=== PATIENT | male | born 1945 | race Caucasian/White ===

== ENCOUNTER 2018-10-02 15:42 | Emergency (ER) | payer MEDICARE, BC ==
[~2018-10-02] VITALS: Ht 170.2 cm; Wt 84.9 kg
[~2018-10-02 15:42] MED LIST: ALLO300T PO; CALC0.25 PO; CALC667C PO; DILT90CA PO; EZET10TA18 PO; FINA5TAB4 PO; FURO-92 PO; GLIP5TAB10 PO; HYDR-3237 PO; LINA5TAB PO; POLY17PO29 PO; ROSU10TA PO; TAMS0.4C2 PO; VIT1CAPS21 PO; WARF4TAB PO
--- NOTE | 2018-10-02 16:40 | NUR ---
TO ROOM FROM LOBBY. NAD.
--- NOTE | 2018-10-02 18:26 | NUR ---
PT UP FOR RECHECK
[2018-10-02 18:47] VITALS: BP 128/65
== END 2018-10-02 19:37 | disposition home or self-care (01) ==
LOC: ED 17:39
DX: S20.20XA Contusion of thorax, unspecified, initial encounter (principal); W01.0XXA Fall on same level from slipping, tripping and stumbling without subsequent striking against object, initial encounter; Y93.89 Activity, other specified; Y92.009 Unspecified place in unspecified non-institutional (private) residence as the place of occurrence of the external cause; Y99.8 Other external cause status
CPT/HCPCS: 71046; 99284

== ENCOUNTER 2018-10-07 10:55 | Inpatient (IN) | payer MEDICARE, BC ==
[~2018-10-07] VITALS: Ht 177.8 cm; Wt 78.2 kg
[~2018-10-07 10:55] MED LIST changes: +PROPOFOL 10 MG/ML, 100ML IV ONE; +SUCCINYLCHOLINE 20 MG/ML, 10ML ONE
--- NOTE | 2018-10-07 11:08 | NUR ---
PALEOLOGY TEACHER: PT INTUBATED UPON ARRIVAL 8.0 23 @ TEETH, PT TO CT VIA STRETCHER BY RN ON MONITOR W/ RT AT THIS TIME.
[2018-10-07 11:15] LABS: BASOPHILS # (AUTO) 0.02 x10^3/uL (0-0.1); BASOPHILS % (AUTO) 0 % (0-1); EOSINOPHILS # (AUTO) 0.23 x10^3/uL (0-0.4); EOSINOPHILS % (AUTO) 3 % (1-7); LYMPHOCYTES # (AUTO) 2.18 x10^3/uL (1-3.4); LYMPHOCYTES % (AUTO) 29 % (22-44); MD NO; MEAN CORPUSCULAR HEMOGLOBIN 30.5 pg (27.5-34.5); MEAN CORPUSCULAR VOLUME 92.4 fL (81-97); MEAN PLATELET VOLUME 9.5 fL (7.4-10.4); MONOCYTES % (AUTO) 7 % (2-9); NEUTROPHILS # (AUTO) 4.72 x10^3/uL (1.8-6.8); NEUTROPHILS % (AUTO) 62 % (42-75); PLATELET COUNT 140 x10^3/uL (130-400); RED BLOOD COUNT 3.73 x10^6/uL (4.38-5.82); RED CELL DISTRIBUTION WIDTH 16.6 % (9.4-14.8)
--- NOTE | 2018-10-07 11:50 | NUR ---
FLANGING ROLL OPERATOR: TAYLOR SILVERIO CALLED AT THIS TIME, REFERAL # Addendum: 10/07/18 at 1157 by CONNER REFERAL # [id number]
[2018-10-07 11:58] LABS: INTERNATIONAL NORMALIZED RATIO 15.69 (0.93-1.1); PROTHROMBIN TIME 149.6 Seconds (9.6-11.5)
[2018-10-07] MEDS: SODIUM CHLORIDE 0.9% 1,000 ML IV SCH ×2 (12:13→23:59)
[2018-10-07] MEDS ORDERED: PHYTONADIONE 10 MG in SODIUM CHLORIDE 0.9% 50 ML IV ONE (12:30)
[2018-10-07] MEDS ORDERED: LABETALOL 5MG/ML, 20ML IVPush PRN (12:30)
[2018-10-07] MEDS ORDERED: ACETAMINOPHEN 325 MG TABLET PO PRN (12:30)
[2018-10-07] MEDS ORDERED: morphine SULFATE 10 MG/ML, 1ML IVPush PRN (12:30)
[2018-10-07] MEDS ORDERED: LORazepam 2 MG/ML, 1ML IVPush PRN (12:30)
--- NOTE | 2018-10-07 13:20 | NUR ---
MD ALMENDAREZ AT BEDSIDE TO ASSESS PT
[2018-10-07] MEDS: LEVETIRACETAM 1,000 MG in SODIUM CHLORIDE 0.9% 100 ML IV SCH ×2 (13:29→23:59)
[2018-10-07] MEDS ORDERED: SUCCINYLCHOLINE 20 MG/ML, 10ML IVPush ONE (13:30)
--- NOTE | 2018-10-07 14:06 | NUR ---
REPORT CALLED TO KRIS WARREN, STAT CLEAN ORDERED ON ROOM, PT TO BE TRANSPORTED VIA STRETCHER BY RN, RT & TECH TO ADMIT BED UPON BED BEING CLEAN
[2018-10-07] MEDS ORDERED: FENTANYL PF 2,500 MCG in SODIUM CHLORIDE 0.9% 200 ML IV PRN (14:47)
[2018-10-07] MEDS ORDERED: LIDOCAINE-MPF 1%, 2ML ENDO PRN (15:00)
[2018-10-08 04:00] VITALS: BP 118/61
[2018-10-08 07:02] LABS: INTERNATIONAL NORMALIZED RATIO 1.47 (0.93-1.1); PROTHROMBIN TIME 15.4 Seconds (9.6-11.5)
[2018-10-08 07:25] LABS: ALANINE AMINOTRANSFERASE 40 U/L (12-78)
[2018-10-08] MEDS: SODIUM CHLORIDE 0.9% 1,000 ML IV SCH ×2 (10:03→20:18)
[2018-10-08] MEDS: PANTOPRAZOLE 40 MG IV IVPush SCH (10:04)
[2018-10-08] MEDS: PHYTONADIONE 10 MG/ML, 1ML SQ SCH (10:04)
[2018-10-08 10:12] LABS: ALBUMIN 2.1 g/dL (3.4-5.0); ANION GAP 12 mmol/L (5-15); CALCIUM 7.5 mg/dL (8.5-10.1); CHLORIDE 111 mmol/L (98-107)
[2018-10-08 10:16] LABS: ALKALINE PHOSPHATASE 73 U/L (45-117); BILIRUBIN,TOTAL 0.5 mg/dL (0.2-1.0)
[2018-10-08 10:32] LABS: MEAN CORPUSCULAR HEMOGLOBIN 31.5 pg (27.5-34.5); MEAN CORPUSCULAR HGB CONC 34.1 g/dL (33.2-36.2); MEAN CORPUSCULAR VOLUME 92.5 fL (81-97); MEAN PLATELET VOLUME 9.3 fL (7.4-10.4); PLATELET COUNT 131 x10^3/uL (130-400); RED BLOOD COUNT 3.06 x10^6/uL (4.38-5.82); RED CELL DISTRIBUTION WIDTH 16.5 % (9.4-14.8)
[2018-10-08 11:00] LABS: BASOPHILS # (AUTO) 0.02 x10^3/uL (0-0.1); BASOPHILS % (AUTO) 0 % (0-1); EOSINOPHILS # (AUTO) 0.01 x10^3/uL (0-0.4); EOSINOPHILS % (AUTO) 0 % (1-7); LYMPHOCYTES # (AUTO) 0.61 x10^3/uL (1-3.4); LYMPHOCYTES % (AUTO) 6 % (22-44); MD SCAN; MONOCYTES # (AUTO) 0.48 x10^3/uL (0.2-0.8); MONOCYTES % (AUTO) 4 % (2-9); NEUTROPHILS # (AUTO) 9.88 x10^3/uL (1.8-6.8); NEUTROPHILS % (AUTO) 90 % (42-75)
[2018-10-08] MEDS ORDERED: CEFTRIAXONE PMX 1GM/50ML 50 ML IV SCH (13:00)
[2018-10-08] MEDS ORDERED: INSULIN LISPRO 100 UNITS/ML, PEN SQ-INSULIN SCH (13:00)
[2018-10-08] MEDS: LEVETIRACETAM 1,000 MG in SODIUM CHLORIDE 0.9% 100 ML IV SCH (13:04)
[2018-10-08] MEDS ORDERED: SODIUM CHLORIDE 0.9% 1,000ML IVBOLUS ONE (18:30)
[2018-10-08] MEDS: INSULIN LISPRO 100 UNITS/ML, PEN SQ-INSULIN SCH (20:17)
[2018-10-08] MEDS: PHENYLEPHRINE 20 MG in SODIUM CHLORIDE 0.9% 248 ML IV PRN ×2 (20:18→23:19)
[2018-10-09] MEDS: LEVETIRACETAM 1,000 MG in SODIUM CHLORIDE 0.9% 100 ML IV SCH (00:17)
[2018-10-09] MEDS: PHENYLEPHRINE 20 MG in SODIUM CHLORIDE 0.9% 248 ML IV PRN ×3 (02:37→09:13)
[2018-10-09] MEDS: INSULIN LISPRO 100 UNITS/ML, PEN SQ-INSULIN SCH ×2 (02:46→09:00)
[2018-10-09] MEDS ORDERED: DEXTROSE 50%, 50ML SYRINGE ONE (02:52)
[2018-10-09] MEDS ORDERED: DEXTROSE 50%, 50ML SYRINGE IVPush PRN (03:00)
[2018-10-09] MEDS ORDERED: GLUCAGON 1 MG IM PRN (03:00)
[2018-10-09] MEDS ORDERED: DEXTROSE 4 GM TAB.CHEW PO PRN (03:00)
[2018-10-09 04:00] VITALS: BP 70/29
[2018-10-09] MEDS ORDERED: SODIUM CHLORIDE FLUSH 10ML SYR IVF SCH (09:00)
[2018-10-09] MEDS: PHYTONADIONE 10 MG/ML, 1ML SQ SCH (09:12)
[2018-10-09] MEDS: PANTOPRAZOLE 40 MG IV IVPush SCH (09:12)
[2018-10-09] MEDS: SODIUM CHLORIDE 0.9% 1,000 ML IV SCH (09:13)
[2018-10-09] MEDS ORDERED: LORazepam 2 MG/ML, 1ML IV ONE ×2 (12:00)
[2018-10-09] MEDS ORDERED: ATROPINE OPHTH SOLN 1%, 2ML PO PRN (12:00)
[2018-10-09] MEDS ORDERED: morphine SULFATE 10 MG/ML, 1ML IV ONE (12:00)
[2018-10-09] MEDS ORDERED: morphine SULFATE 10 MG/ML, 1ML IV PRN (12:00)
[2018-10-09] MEDS ORDERED: LORazepam 2 MG/ML, 1ML IV PRN (12:00)
== END 2018-10-09 14:28 | disposition expired | DRG 85 ==
LOC: ED 11:05 → EDIP 12:11 → CCU 14:38
PROVIDERS: ADMIT Internal Medicine; ATTEND Internal Medicine
PROC: 5A1945Z Respiratory Ventilation, 24-96 Consecutive Hours (ICD-10-PCS; principal; 2018-10-07)
PROC: 0BH17EZ Insertion of Endotracheal Airway into Trachea, Via Natural or Artificial Opening (ICD-10-PCS; 2018-10-07)
DX: S06.5X0A Traumatic subdural hemorrhage without loss of consciousness, initial encounter (principal); G93.5 Compression of brain; J96.01 Acute respiratory failure with hypoxia; N17.0 Acute kidney failure with tubular necrosis; D68.9 Coagulation defect, unspecified; Z99.11 Dependence on respirator [ventilator] status; E04.1 Nontoxic single thyroid nodule; E11.22 Type 2 diabetes mellitus with diabetic chronic kidney disease; E11.319 Type 2 diabetes mellitus with unspecified diabetic retinopathy without macular edema; E11.40 Type 2 diabetes mellitus with diabetic neuropathy, unspecified; E55.9 Vitamin D deficiency, unspecified; E78.00 Pure hypercholesterolemia, unspecified; E78.5 Hyperlipidemia, unspecified; H40.9 Unspecified glaucoma; I12.9 Hypertensive chronic kidney disease with stage 1 through stage 4 chronic kidney disease, or unspecified chronic kidney disease; I48.91 Unspecified atrial fibrillation; K21.9 Gastro-esophageal reflux disease without esophagitis; M10.9 Gout, unspecified; N40.0 Benign prostatic hyperplasia without lower urinary tract symptoms; W18.39XA Other fall on same level, initial encounter; Y93.89 Activity, other specified; Y92.89 Other specified places as the place of occurrence of the external cause; Y99.8 Other external cause status; Z51.5 Encounter for palliative care; Z66 Do not resuscitate; Z79.01 Long term (current) use of anticoagulants; Z86.711 Personal history of pulmonary embolism; Z86.718 Personal history of other venous thrombosis and embolism; Z87.891 Personal history of nicotine dependence; Z89.429 Acquired absence of other toe(s), unspecified side; N18.9 Chronic kidney disease, unspecified
CPT/HCPCS: 36415; 36600; 70450; 70496; 70498; 71045; 80047; 80053; 82803; 82805; 82962; 83735; 84478; 85025; 85610; 85730; 86850; 86900; 87070; 87077; 87081; 87186; 87205; 93005; 94002; 94003; 96361; 96365; 96368; G0378; J0696; J1953; J2704; J3430; C9113; J0330; J2270; J2370; J7030; J7050